=== PATIENT | male | born 1975 | race Caucasian/White ===

== ENCOUNTER → 2016-03-05 | Outpatient (CLI) | payer MEDICARE, MEDICAID ==
[~2016-03-05] MED LIST: ANAPROX DS550 MG PO; ANTIBIOTIC O500 U/GM TP; CLINDAMYCIN HC300 MG PO; CLINDAMYCIN150 MG PO; HUMULIN R100 U/ML SC; HYDROCODONE BIT1 T11 PO; KEFLEX500 MG PO; LANTUS100 U/ML SC; LEVEMIR10 ML SC; NAPROSYN500 MG PO; NOVOLIN R100 U/ML SC; OMEPRAZOLE20 M2 PO; PRAVASTATIN SOD20 MG PO; REGLAN10 M1 PO; REGLAN10 MG PO; SILVADENE1% TP; TRAZODONE100 MG PO
--- NOTE | ~2016-03-05 | HM ---
[place], [place] HOLTER MONITOR REPORT NAME: IVON ROJAS UNIT #: [id number] ROOM: DOCTOR: ALFONSO PAREDES MD BIRTHDATE: [birth year] DOS: 03/10/2016 48-HOUR HOLTER REFERRING PHYSICIAN: Dr. Mcgregor. INDICATION: Palpitations. The patient underwent 48-hour Holter monitor. The patient's baseline rhythm was normal sinus with an average heart rate of 98 beats per minute with a minimum heart rate of 55 beats per minute with a maximum heart rate of 188 beats per minute. SUPRAVENTRICULAR ACTIVITY: The patient experienced a total of 133 isolated PACs. No significant supraventricular tachycardias. VENTRICULAR ACTIVITY: 1. The patient experienced 12 isolated PVCs. No significant sustaining ventricular tachycardias. 2. No significant blocks, pauses, or bradycardia. 3. No significant diary entries were noted. SUMMARY OF FINDINGS: TopofForm Benign 48-hour Holter with very rare PACs and PVCs noted.BottomofForm ALFONSO PAREDES MD CM:HOLTER:HOLTER MONITOR REPORT [id number] ALFONSO PAREDES MD
== END | disposition home or self-care (01) ==
LOC: CARD 02:27
DX: E10.65 Type 1 diabetes mellitus with hyperglycemia (principal); R00.2 Palpitations; E78.5 Hyperlipidemia, unspecified; G25.0 Essential tremor; B18.2 Chronic viral hepatitis C; R51 Headache; R56.9 Unspecified convulsions; Z88.0 Allergy status to penicillin

== ENCOUNTER → 2016-03-20 | Outpatient (CLI) | payer MEDICARE, MEDICAID | END | disposition home or self-care (01) | LOC: CARD 02:51 | DX: R00.2 Palpitations (principal) ==

== ENCOUNTER → 2016-09-09 | Outpatient (CLI) | payer MEDICARE, MEDICAID | END | disposition home or self-care (01) | LOC: RESCLI 02:55 | DX: E10.65 Type 1 diabetes mellitus with hyperglycemia (principal); F17.200 Nicotine dependence, unspecified, uncomplicated; Z88.0 Allergy status to penicillin; Z91.010 Allergy to peanuts; Z88.8 Allergy status to other drugs, medicaments and biological substances ==

== ENCOUNTER → 2016-11-25 | Outpatient (CLI) | payer MEDICARE | END | disposition home or self-care (01) | LOC: RESCLI 01:45 → LAB 01:45 → RESCLI 08:25 | DX: E10.65 Type 1 diabetes mellitus with hyperglycemia (principal) ==

== ENCOUNTER → 2017-02-17 | Outpatient (CLI) | payer MEDICARE, MEDICAID | END | disposition home or self-care (01) | LOC: RESCLI 02:11 | DX: E10.65 Type 1 diabetes mellitus with hyperglycemia (principal); G56.03 Carpal tunnel syndrome, bilateral upper limbs; B18.2 Chronic viral hepatitis C; Z88.0 Allergy status to penicillin; Z72.0 Tobacco use ==

== ENCOUNTER → 2017-06-02 | Outpatient (CLI) | payer MEDICARE, MEDICAID | END | disposition home or self-care (01) | LOC: RESCLI 10:56 | DX: B18.2 Chronic viral hepatitis C (principal); G56.03 Carpal tunnel syndrome, bilateral upper limbs; E10.65 Type 1 diabetes mellitus with hyperglycemia; Z88.0 Allergy status to penicillin ==

== ENCOUNTER 2017-09-29 22:26 | Emergency (ER) | payer MEDICARE, MEDICAID ==
[~2017-09-29] VITALS: Ht 154.9 cm; Wt 52.2 kg
--- NOTE | ~2017-09-29 | EKG ---
[place], [place] ELECTROCARDIOGRAM REPORT NAME: IVON ROJAS UNIT #: [id number] ROOM: DOCTOR: EPIPHANY DRAFT REPORT BIRTHDATE: [birth year] [facility] Test Date: 2017-09-29 Test Time: 22:55:46 Pat Name: IVON ROJAS Department: ER Room: Gender: [employer] Consultant: : 1975 Requested By: FOREST LEWIS Order Number: [id number] Reading MD: Yong Espinoza MD Measurements Intervals [place] Rate: 95 P: 66 OR: 175 QRS: 69 QRSD: 83 T: 54 QT: 358 QTc: 450 Interpretive Statements Sinus rhythm Electronically Signed On 09-30-2017 10:20:57 PDT by Yong Espinoza MD CM:EKGRPT:ELECTROCARDIOGRAM REPORT [id number] FOREST SAMUELS DRAFT REPORT FOREST LEWIS DO
[~2017-09-29 22:26] MED LIST changes: -CLINDAMYCIN150 MG PO; -HYDROCODONE BIT1 T11 PO; -NAPROSYN500 MG PO; -SILVADENE1% TP
[2017-09-29 23:14] LABS: BASO % 0.5 % (0.0-1.0); EOS # 0.1 10*3/uL (0.0-0.4); EOS % 1.6 % (1.0-4.0); HEMATOCRIT 43.5 % (42.0-52.0); HEMOGLOBIN 14.5 g/dl (14.0-18.0); LYMPH # 2.1 10*3/uL (1.3-4.4); LYMPH % 25.2 % (27.0-41.0); MEAN CELL VOLUME 88.1 fl (80.0-94.0); MEAN CORPUSCULAR HGB 29.4 pg (27.0-31.0); MEAN CORPUSCULAR HGB CONC 33.3 g/dl (33.0-37.0); MEAN PLATELET VOLUME 8.5 fl (9.6-12.3); MONO # 0.6 10*3/uL (0.1-1.0); MONO % 7.3 % (3.0-9.0); NEUT # 5.4 10*3/uL (2.3-7.9); PLATELET COUNT AUTOMATED 252 10*3/uL (130-400); RED BLOOD COUNT 4.94 10*6/uL (4.50-5.90); RED CELL DISTRI WIDTH 13.2 % (0-14.5); WHITE BLOOD COUNT 8.3 10*3/uL (4.8-10.8)
[2017-09-29 23:16] LABS: ABG BASE EXCESS 4.6 mmol/L (-2.0-2.0); ABG HCO3 31.5 mmol/l (22-26); ABG O2 SATURATION 65.2 % (95-97); ARTERIAL BLOOD GAS PCO2 59.1 mmHg (35-45); ARTERIAL BLOOD GAS PH 7.347 (7.35-7.45)
[2017-09-29 23:23] LABS: ARTERIAL BLOOD GAS PO2 25.8 mmHg (80-90)
[2017-09-29 23:40] LABS: ALBUMIN 4.5 gm/dl (3.1-4.5); ALKALINE PHOSPHATASE 103 U/L (45-117); BUN 16 mg/dl (7-24); CHLORIDE 101 mmol/L (98-107); CREATININE 0.91 mg/dL (0.70-1.30); POTASSIUM 3.7 mmol/L (3.5-5.1); SGOT/AST 56 IU/L (3-35); SGPT/ALT 68 U/L (12-78); SODIUM 139 mmol/L (136-145); TOTAL PROTEIN 8.7 gm/dL (6.4-8.2)
[2017-09-29 23:41] LABS: VENOUS BLOOD GAS O2 SAT 79.3 % (40-85); VENOUS PH 7.354 (7.32-7.43)
[2017-09-29 23:42] LABS: TROPONIN I < 0.015 ng/ml (<0.045)
== END 2017-09-29 23:48 | disposition left against medical advice (07) ==
LOC: ED 22:26
PROVIDERS: Student in an Organized Health Care Education/Training Program
DX: T58.91XA Toxic effect of carbon monoxide from unspecified source, accidental (unintentional), initial encounter (principal); R41.0 Disorientation, unspecified; R53.83 Other fatigue; R11.10 Vomiting, unspecified; E11.9 Type 2 diabetes mellitus without complications; Z88.0 Allergy status to penicillin; Z88.8 Allergy status to other drugs, medicaments and biological substances; Z91.013 Allergy to seafood; Y92.9 Unspecified place or not applicable

== ENCOUNTER → 2017-11-25 | Outpatient (CLI) | payer MEDICARE, MEDICAID ==
[~2017-11-25] MED LIST changes: +CLINDAMYCIN150 MG PO; +HYDROCODONE BIT1 T11 PO; +NAPROSYN500 MG PO; +SILVADENE1% TP
== END | disposition home or self-care (01) ==
LOC: RESCLI 04:54
DX: E10.65 Type 1 diabetes mellitus with hyperglycemia (principal); B18.2 Chronic viral hepatitis C; L40.9 Psoriasis, unspecified; Z79.899 Other long term (current) drug therapy; Z88.0 Allergy status to penicillin; Z88.8 Allergy status to other drugs, medicaments and biological substances; Z91.018 Allergy to other foods

== ENCOUNTER 2021-04-06 11:21 | Inpatient (IN) | payer MEDICARE ==
[~2021-04-06] VITALS: Ht 177.8 cm; Wt 81.6 kg
[2021-04-06 11:25] VITALS: BP 96/63
[2021-04-06 11:49] LABS: BASO # 0.1 10*3/uL (0.0-0.1); BASO % 0.7 % (0.0-1.0); EOS # 0.1 10*3/uL (0.0-0.4); EOS % 1.1 % (1.0-4.0); HEMATOCRIT 44.9 % (42.0-52.0); LYMPH # 1.9 10*3/uL (1.3-4.4); LYMPH % 20.6 % (27.0-41.0); MEAN CELL VOLUME 87.7 fl (80.0-94.0); MEAN CORPUSCULAR HGB 27.9 pg (27.0-31.0); MEAN CORPUSCULAR HGB CONC 31.8 g/dl (33.0-37.0); MEAN PLATELET VOLUME 9.1 fl (9.6-12.3); MONO # 0.4 10*3/uL (0.1-1.0); MONO % 4.6 % (3.0-9.0); NEUT # 6.7 10*3/uL (2.3-7.9); NEUT % 72.5 % (47.0-73.0); PLATELET COUNT AUTOMATED 272 10*3/uL (130-400); RED BLOOD COUNT 5.12 10*6/uL (4.50-5.90); RED CELL DISTRI WIDTH 12.8 % (0-14.5); WHITE BLOOD COUNT 9.2 10*3/uL (4.8-10.8)
[2021-04-06 12:00] LABS: ALBUMIN 3.5 gm/dl (3.1-4.5); ALKALINE PHOSPHATASE 156 U/L (45-117); BUN 20 mg/dl (7-24); CHLORIDE 93 mmol/L (98-107); CREATININE 1.17 mg/dL (0.70-1.30); POTASSIUM 4.3 mmol/L (3.5-5.1); SGOT/AST 47 IU/L (3-35); SGPT/ALT 43 U/L (12-78); SODIUM 131 mmol/L (136-145); TOTAL PROTEIN 7.4 gm/dL (6.4-8.2)
[2021-04-06] MEDS ORDERED: LEVEMIR100 UNIT/1 SC (12:27)
[2021-04-06 13:35] VITALS: BP 98/64
[2021-04-06 14:34] LABS: BUN 18 mg/dl (7-24); CHLORIDE 101 mmol/L (98-107); CREATININE 1.18 mg/dL (0.70-1.30); POTASSIUM 4.5 mmol/L (3.5-5.1); SODIUM 131 mmol/L (136-145)
[2021-04-06 15:00] VITALS: BP 98/64
[2021-04-06 15:12] LABS: BILIRUBIN Negative (Negative); BLOOD Negative (Negative); CLARITY Clear (Clear); COLOR Yellow (Yellow); GLUCOSE 3+ (Negative); KETONE 4+ (Negative); LEUKO ESTERASE Negative (Negative); NITRITE Negative (Negative); SPECIFIC GRAVITY >= 1.030 (1.001-1.030); UROBILINOGEN 0.2 E.U./dl (0.0-1.0)
[2021-04-06 15:22] LABS: RBC 0-2 rbc/hpf (0-2); WBC 0-2 wbc/hpf (0-5)
[2021-04-06 17:14] LABS: BUN 16 mg/dl (7-24); CHLORIDE 106 mmol/L (98-107); CREATININE 0.79 mg/dL (0.70-1.30); POTASSIUM 4.9 mmol/L (3.5-5.1); SODIUM 135 mmol/L (136-145)
[2021-04-06 17:15] VITALS: BP 102/66
[2021-04-06 17:30] VITALS: BP 121/75
[2021-04-06 20:00] VITALS: BP 116/74
[2021-04-06 20:25] LABS: BUN 14 mg/dl (7-24); CHLORIDE 110 mmol/L (98-107); CREATININE 0.98 mg/dL (0.70-1.30); SODIUM 139 mmol/L (136-145)
[2021-04-06 23:24] LABS: BUN 12 mg/dl (7-24); CHLORIDE 109 mmol/L (98-107); CREATININE 0.86 mg/dL (0.70-1.30); POTASSIUM 3.8 mmol/L (3.5-5.1); SODIUM 138 mmol/L (136-145)
[2021-04-07] VITALS: BP 98/58
[2021-04-07 04:00] VITALS: BP 98/61
[2021-04-07 06:06] LABS: ALBUMIN 2.4 gm/dl (3.1-4.5); BASO # 0.1 10*3/uL (0.0-0.1); BASO % 0.6 % (0.0-1.0); BUN 13 mg/dl (7-24); CHLORIDE 109 mmol/L (98-107); CHOLESTEROL 175 mg/dL (<200); CREATININE 0.77 mg/dL (0.70-1.30); EOS # 0.2 10*3/uL (0.0-0.4); EOS % 2.3 % (1.0-4.0); HEMATOCRIT 38.3 % (42.0-52.0); LYMPH # 3.3 10*3/uL (1.3-4.4); LYMPH % 42.2 % (27.0-41.0); MEAN CELL VOLUME 87.8 fl (80.0-94.0); MEAN CORPUSCULAR HGB CONC 31.9 g/dl (33.0-37.0); MEAN PLATELET VOLUME 9.1 fl (9.6-12.3); MONO # 0.4 10*3/uL (0.1-1.0); MONO % 5.2 % (3.0-9.0); NEUT # 3.8 10*3/uL (2.3-7.9); NEUT % 49.6 % (47.0-73.0); PLATELET COUNT AUTOMATED 250 10*3/uL (130-400); POTASSIUM 3.4 mmol/L (3.5-5.1); RED BLOOD COUNT 4.36 10*6/uL (4.50-5.90); SGOT/AST 29 IU/L (3-35); SGPT/ALT 32 U/L (12-78); SODIUM 140 mmol/L (136-145); TOTAL PROTEIN 5.8 gm/dL (6.4-8.2); TRIGLYCERIDES 193 mg/dl (<150); WHITE BLOOD COUNT 7.7 10*3/uL (4.8-10.8)
[2021-04-07 06:11] LABS: ALKALINE PHOSPHATASE 120 U/L (45-117); FREE T4 0.93 ng/dl (0.76-1.46); LDL CHOLESTEROL 103 mg/dL (9-159); THYROID STIM HORMONE (HS) 0.967 uIU/ml (0.358-4.75)
[2021-04-07 08:00] VITALS: BP 106/66
[2021-04-07] MEDS ORDERED: LEVEMIR100 UNIT/1 SC ×2 (10:17→10:20)
[2021-04-07] MEDS ORDERED: NOVOLOG10 ML SC (10:17)
== END 2021-04-07 10:58 | disposition home or self-care (01) | DRG 639 ==
LOC: ED 11:21 → EDHOLD 12:12 → ICCU 17:07
PROVIDERS: Emergency Medicine; Student in an Organized Health Care Education/Training Program; ADMIT Family Medicine; ATTEND Family Medicine
DX: E10.10 Type 1 diabetes mellitus with ketoacidosis without coma (principal); F17.210 Nicotine dependence, cigarettes, uncomplicated; K31.84 Gastroparesis; R74.01 Elevation of levels of liver transaminase levels; E87.8 Other disorders of electrolyte and fluid balance, not elsewhere classified; E10.43 Type 1 diabetes mellitus with diabetic autonomic (poly)neuropathy; Z88.0 Allergy status to penicillin; Z91.013 Allergy to seafood; Z88.8 Allergy status to other drugs, medicaments and biological substances; Z82.49 Family history of ischemic heart disease and other diseases of the circulatory system; Z79.4 Long term (current) use of insulin; Z79.899 Other long term (current) drug therapy

== ENCOUNTER 2021-05-14 11:06 | Inpatient (IN) | payer MEDICARE ==
[~2021-05-14] VITALS: Ht 177.8 cm; Wt 62.6 kg
[~2021-05-14 11:06] MED LIST changes: +LEVEMIR100 UNIT/1 SC; +NOVOLOG10 ML SC
[2021-05-14 11:09] VITALS: BP 110/86
[2021-05-14 13:22] LABS: BASO # 0.1 10*3/uL (0.0-0.1); BASO % 0.5 % (0.0-1.0); EOS % 0.1 % (1.0-4.0); HEMATOCRIT 43.4 % (42.0-52.0); LYMPH # 1.5 10*3/uL (1.3-4.4); LYMPH % 14.4 % (27.0-41.0); MEAN CELL VOLUME 88.6 fl (80.0-94.0); MEAN CORPUSCULAR HGB 28.2 pg (27.0-31.0); MEAN CORPUSCULAR HGB CONC 31.8 g/dl (33.0-37.0); MEAN PLATELET VOLUME 9.3 fl (9.6-12.3); MONO # 0.3 10*3/uL (0.1-1.0); MONO % 3.2 % (3.0-9.0); NEUT # 8.5 10*3/uL (2.3-7.9); NEUT % 81.5 % (47.0-73.0); PLATELET COUNT AUTOMATED 290 10*3/uL (130-400); RED CELL DISTRI WIDTH 13.5 % (0-14.5); WHITE BLOOD COUNT 10.5 10*3/uL (4.8-10.8)
[2021-05-14 13:33] LABS: ACT PARTIAL THROMBO TIME 22.1 SECONDS (20.0-32.1); INTERNATIONAL NORM RATIO 0.9 (2.0-3.5)
[2021-05-14 13:41] LABS: ALKALINE PHOSPHATASE 170 U/L (45-117); BUN 20 mg/dl (7-24); CHLORIDE 96 mmol/L (98-107); CREATININE 1.13 mg/dL (0.70-1.30); LIPASE 39 U/L (73-393); POTASSIUM 5.1 mmol/L (3.5-5.1); SGOT/AST 17 IU/L (3-35); SGPT/ALT 25 U/L (12-78); SODIUM 131 mmol/L (136-145); TOTAL PROTEIN 7.6 gm/dL (6.4-8.2)
[2021-05-14 14:10] VITALS: BP 98/54
[2021-05-14 16:24] LABS: BILIRUBIN Negative (Negative); BLOOD Negative (Negative); CLARITY Clear (Clear); COLOR Yellow (Yellow); GLUCOSE 3+ (Negative); KETONE 4+ (Negative); LEUKO ESTERASE Negative (Negative); NITRITE Negative (Negative); SPECIFIC GRAVITY >= 1.030 (1.001-1.030); UROBILINOGEN 0.2 E.U./dl (0.0-1.0)
[2021-05-14 16:35] LABS: BACTERIA TRACE; EPITHELIAL CELLS 0-2; WBC 0-2 wbc/hpf (0-5)
[2021-05-14 17:11] VITALS: BP 98/50
[2021-05-14 18:42] LABS: BUN 24 mg/dl (7-24); CHLORIDE 107 mmol/L (98-107); CREATININE 1.44 mg/dL (0.70-1.30); SODIUM 140 mmol/L (136-145)
[2021-05-14 18:44] LABS: POTASSIUM 3.7 mmol/L (3.5-5.1)
[2021-05-14 20:00] VITALS: BP 94/49
[2021-05-14 21:55] LABS: BUN 20 mg/dl (7-24); CHLORIDE 116 mmol/L (98-107); CREATININE 1.15 mg/dL (0.70-1.30); POTASSIUM 3.8 mmol/L (3.5-5.1); SODIUM 144 mmol/L (136-145)
[2021-05-15] VITALS: BP 91/49
[2021-05-15 02:13] LABS: BUN 19 mg/dl (7-24); CHLORIDE 117 mmol/L (98-107); CREATININE 0.96 mg/dL (0.70-1.30); POTASSIUM 3.4 mmol/L (3.5-5.1); SODIUM 147 mmol/L (136-145)
[2021-05-15 04:00] VITALS: BP 103/61
[2021-05-15 06:03] LABS: BASO % 0.3 % (0.0-1.0); EOS % 0.2 % (1.0-4.0); HEMATOCRIT 32.3 % (42.0-52.0); LYMPH # 2.7 10*3/uL (1.3-4.4); LYMPH % 23.8 % (27.0-41.0); MEAN CELL VOLUME 87.5 fl (80.0-94.0); MEAN CORPUSCULAR HGB 27.9 pg (27.0-31.0); MEAN CORPUSCULAR HGB CONC 31.9 g/dl (33.0-37.0); MONO # 0.8 10*3/uL (0.1-1.0); NEUT # 7.7 10*3/uL (2.3-7.9); NEUT % 68.3 % (47.0-73.0); PLATELET COUNT AUTOMATED 276 10*3/uL (130-400); RED BLOOD COUNT 3.69 10*6/uL (4.50-5.90); RED CELL DISTRI WIDTH 13.9 % (0-14.5); WHITE BLOOD COUNT 11.2 10*3/uL (4.8-10.8)
[2021-05-15 06:04] LABS: BUN 18 mg/dl (7-24); CHLORIDE 115 mmol/L (98-107); CREATININE 0.94 mg/dL (0.70-1.30); POTASSIUM 3.5 mmol/L (3.5-5.1); SODIUM 143 mmol/L (136-145)
[2021-05-15 08:00] VITALS: BP 94/68
[2021-05-15 12:00] VITALS: BP 96/69
[2021-05-15] MEDS ORDERED: LEVEMIR100 UNIT/1 SC (13:16)
[2021-05-15] MEDS ORDERED: NOVOLOG10 ML SC (13:16)
[2021-05-15] MEDS ORDERED: INSULIN SYRING MC (14:24)
== END 2021-05-15 14:28 | disposition home or self-care (01) | DRG 638 ==
LOC: ED 11:06 → EDHOLD 14:51 → ICCU 16:29
PROVIDERS: Emergency Medicine; Internal Medicine; ADMIT Student in an Organized Health Care Education/Training Program; ATTEND Student in an Organized Health Care Education/Training Program
PROC: 02H633Z Insertion of Infusion Device into Right Atrium, Percutaneous Approach (ICD-10-PCS; principal; 2021-05-14)
DX: E10.10 Type 1 diabetes mellitus with ketoacidosis without coma (principal); E87.1 Hypo-osmolality and hyponatremia; E44.0 Moderate protein-calorie malnutrition; Z68.1 Body mass index [BMI] 19.9 or less, adult; E83.41 Hypermagnesemia; F17.210 Nicotine dependence, cigarettes, uncomplicated; K31.84 Gastroparesis; D64.9 Anemia, unspecified; E83.39 Other disorders of phosphorus metabolism; Z71.6 Tobacco abuse counseling; Z82.49 Family history of ischemic heart disease and other diseases of the circulatory system; Z79.4 Long term (current) use of insulin; Z88.0 Allergy status to penicillin; Z91.013 Allergy to seafood; Z88.8 Allergy status to other drugs, medicaments and biological substances

== ENCOUNTER → 2021-11-27 | Outpatient (CLI) | payer MEDICARE ==
[~2021-11-27] MED LIST changes: +INSULIN SYRING MC; +LIPITOR20 MG PO
[2021-11-27 12:39] LABS: BASO % 0.5 % (0.0-1.0); EOS # 0.1 10*3/uL (0.0-0.4); EOS % 1.2 % (1.0-4.0); HEMATOCRIT 44.2 % (42.0-52.0); LYMPH # 1.3 10*3/uL (1.3-4.4); LYMPH % 17.1 % (27.0-41.0); MEAN CELL VOLUME 91.5 fl (80.0-94.0); MEAN CORPUSCULAR HGB 29.6 pg (27.0-31.0); MEAN CORPUSCULAR HGB CONC 32.4 g/dl (33.0-37.0); MEAN PLATELET VOLUME 8.2 fl (9.6-12.3); MONO # 0.4 10*3/uL (0.1-1.0); MONO % 4.9 % (3.0-9.0); NEUT # 5.7 10*3/uL (2.3-7.9); NEUT % 76.2 % (47.0-73.0); PLATELET COUNT AUTOMATED 358 10*3/uL (130-400); RED BLOOD COUNT 4.83 10*6/uL (4.50-5.90); RED CELL DISTRI WIDTH 16.4 % (0-14.5); WHITE BLOOD COUNT 7.5 10*3/uL (4.8-10.8)
[2021-11-27 12:56] LABS: BUN 16 mg/dl (7-24); CHLORIDE 100 mmol/L (98-107); CHOLESTEROL 286 mg/dL (<200); CREATININE 0.89 mg/dL (0.70-1.30); LDL CHOLESTEROL 192 mg/dL (9-159); POTASSIUM 4.3 mmol/L (3.5-5.1); SGOT/AST 50 IU/L (3-35); SGPT/ALT 44 U/L (12-78); SODIUM 134 mmol/L (136-145); TRIGLYCERIDES 237 mg/dl (<150)
[2021-11-27 13:00] LABS: ALKALINE PHOSPHATASE 305 U/L (45-117)
== END | disposition home or self-care (01) ==
LOC: LAB 11:47
PROVIDERS: ATTEND Internal Medicine
DX: M43.16 Spondylolisthesis, lumbar region (principal); E11.9 Type 2 diabetes mellitus without complications; M79.604 Pain in right leg

== ENCOUNTER 2023-04-03 11:48 | Emergency (ER) | payer MEDICARE, MEDICAID ==
[~2023-04-03] VITALS: Ht 180.3 cm; Wt 64.9 kg
[2023-04-03] MEDS ORDERED: CEPHALEXIN500 M1 PO (13:19)
== END 2023-04-03 13:30 | disposition home or self-care (01) ==
LOC: ED 11:48
DX: S61.412A Laceration without foreign body of left hand, initial encounter (principal); F17.200 Nicotine dependence, unspecified, uncomplicated; Z88.0 Allergy status to penicillin; Z88.8 Allergy status to other drugs, medicaments and biological substances; Z91.013 Allergy to seafood; Z79.4 Long term (current) use of insulin; Z79.899 Other long term (current) drug therapy; Z98.890 Other specified postprocedural states; W26.0XXA Contact with knife, initial encounter; Y93.89 Activity, other specified; Y92.89 Other specified places as the place of occurrence of the external cause; Y99.8 Other external cause status

== ENCOUNTER → 2023-06-10 | Outpatient (CLI) | payer MEDICARE, MEDICAID ==
[~2023-06-10] MED LIST changes: +CEPHALEXIN500 M1 PO
[2023-06-10 14:23] LABS: BASO # 0.1 10*3/uL (0.0-0.1); BASO % 0.5 % (0.0-1.0); EOS # 0.4 10*3/uL (0.0-0.4); HEMATOCRIT 42.2 % (42.0-52.0); LYMPH # 2.2 10*3/uL (1.3-4.4); LYMPH % 23.9 % (27.0-41.0); MEAN CELL VOLUME 87.6 fl (80.0-94.0); MEAN CORPUSCULAR HGB 27.8 pg (27.0-31.0); MEAN CORPUSCULAR HGB CONC 31.8 g/dl (33.0-37.0); MEAN PLATELET VOLUME 8.6 fl (9.6-12.3); MONO # 0.5 10*3/uL (0.1-1.0); MONO % 5.9 % (3.0-9.0); NEUT % 65.5 % (47.0-73.0); PLATELET COUNT AUTOMATED 319 10*3/uL (130-400); RED BLOOD COUNT 4.82 10*6/uL (4.50-5.90); RED CELL DISTRI WIDTH 13.3 % (0-14.5); RETICULOCYTE % 1.47 % (0.50-2.50); WHITE BLOOD COUNT 9.1 10*3/uL (4.8-10.8)
[2023-06-10 14:47] LABS: CLARITY Clear (Clear); COLOR Yellow (Yellow); GLUCOSE 3+ (Negative)
[2023-06-10 14:48] LABS: BILIRUBIN Negative (Negative); BLOOD Negative (Negative); KETONE Negative (Negative); LEUKO ESTERASE Negative (Negative); NITRITE Negative (Negative); SPECIFIC GRAVITY 1.015 (1.001-1.030); UROBILINOGEN 0.2 E.U./dl (0.0-1.0)
[2023-06-10 14:54] LABS: ALKALINE PHOSPHATASE 119 U/L (46-116); BUN 12 mg/dl (9-23); CHLORIDE 103 mmol/L (98-107); CHOLESTEROL 207 mg/dL (<200); GAMMA GLUTAMYL TRANSPEPTIDASE 79 U/L (0-73); LDL CHOLESTEROL 139 mg/dL (9-159); POTASSIUM 4.3 mmol/L (3.4-5.1); SGPT/ALT 59 U/L (5-49); T3 UPTAKE 21.8 % (22.4-36.7); THYROXINE (T4) TOTAL 8.7 ug/dl (4.5-10.9); TOTAL PROTEIN 7.2 gm/dL (6.0-8.0); TRIGLYCERIDES 89 mg/dl (<150); URIC ACID 4.2 mg/dL (3.7-9.2)
[2023-06-10 15:03] LABS: VITAMIN D, 25-HYDROXY 29.2 ng/mL (30-100)
[2023-06-10 15:05] LABS: BACTERIA TRACE; HYALINE CAST 0-2
[2023-06-10 15:06] LABS: RBC 0-2 rbc/hpf (0-2)
[2023-06-11 13:07] LABS: ANTI-DSDNA ANTIBODIES <1 IU/mL (0-9)
== END | disposition home or self-care (01) ==
LOC: LAB 13:46
PROVIDERS: ATTEND Family Medicine
DX: Z12.5 Encounter for screening for malignant neoplasm of prostate (principal); E78.5 Hyperlipidemia, unspecified; E55.9 Vitamin D deficiency, unspecified; R79.89 Other specified abnormal findings of blood chemistry; R53.83 Other fatigue; R74.8 Abnormal levels of other serum enzymes; R05.3 Chronic cough

== ENCOUNTER → 2024-07-29 | Outpatient (CLI) | payer OTHER, MEDICAID | END | disposition home or self-care (01) | LOC: RESCLI 13:58 | PROVIDERS: ATTEND Family Medicine | DX: E10.9 Type 1 diabetes mellitus without complications (principal) ==

== ENCOUNTER → 2024-08-09 | Outpatient (CLI) | payer OTHER ==
[2024-08-09 13:35] LABS: BASO # 0.1 10*3/uL (0.0-0.1); BASO % 0.7 % (0.0-1.0); EOS # 0.2 10*3/uL (0.0-0.4); EOS % 2.3 % (1.0-4.0); HEMATOCRIT 46.4 % (42.0-52.0); MEAN CELL VOLUME 86.2 fl (80.0-94.0); MEAN CORPUSCULAR HGB 27.9 pg (27.0-31.0); MEAN CORPUSCULAR HGB CONC 32.3 g/dl (33.0-37.0); MEAN PLATELET VOLUME 8.3 fl (9.6-12.3); MONO # 0.7 10*3/uL (0.1-1.0); MONO % 6.5 % (3.0-9.0); NEUT # 6.5 10*3/uL (2.3-7.9); NEUT % 64.3 % (47.0-73.0); PLATELET COUNT AUTOMATED 309 10*3/uL (130-400); RED BLOOD COUNT 5.38 10*6/uL (4.50-5.90); RED CELL DISTRI WIDTH 14.3 % (0-14.5); WHITE BLOOD COUNT 10.1 10*3/uL (4.8-10.8)
[2024-08-09 13:57] LABS: ALKALINE PHOSPHATASE 104 U/L (46-116); BUN 8 mg/dl (9-23); CHLORIDE 98 mmol/L (98-107); CHOLESTEROL 253 mg/dL (<200); LDL CHOLESTEROL 170 mg/dL (9-159); POTASSIUM 4.5 mmol/L (3.4-5.1); SGPT/ALT 28 U/L (5-49); TRIGLYCERIDES 122 mg/dl (<150)
== END | disposition home or self-care (01) ==
LOC: LAB 13:04
PROVIDERS: Student in an Organized Health Care Education/Training Program; ATTEND Family Medicine
DX: E10.9 Type 1 diabetes mellitus without complications (principal)

== ENCOUNTER 2024-09-13 22:59 | Emergency (ER) | payer OTHER ==
[~2024-09-13] VITALS: Ht 180.3 cm; Wt 74.8 kg
[2024-09-14 00:34] LABS: BASO # 0.0 10*3/uL (0.0-0.1); BASO % 0.4 % (0.0-1.0); EOS # 0.2 10*3/uL (0.0-0.4); EOS % 1.7 % (1.0-4.0); MEAN CELL VOLUME 87.4 fl (80.0-94.0); MEAN CORPUSCULAR HGB 27.6 pg (27.0-31.0); MEAN PLATELET VOLUME 8.2 fl (9.6-12.3); MONO # 0.6 10*3/uL (0.1-1.0); MONO % 6.3 % (3.0-9.0); NEUT # 6.0 10*3/uL (2.3-7.9); NEUT % 67.0 % (47.0-73.0); NUCLEATED RED BLOOD CELL 0.0 % (0.0-0.0); NUCLEATED RED BLOOD CELL 0.0 10*3/uL (0.0-0.0); PLATELET COUNT AUTOMATED 323 10*3/uL (130-400); RED CELL DISTRI WIDTH 13.9 % (0-14.5)
[2024-09-14 00:53] LABS: BUN 7 mg/dl (9-23); ETHYL ALCOHOL 227.6 mg/dl (<3)
[2024-09-14] MEDS ORDERED: POTASSIUM CHLORIDE 20 MEQ TAB PO ONE (01:45)
== END 2024-09-14 02:13 ==
LOC: ED 22:59
PROVIDERS: Internal Medicine
DX: S93.402A Sprain of unspecified ligament of left ankle, initial encounter (principal); F10.129 Alcohol abuse with intoxication, unspecified; E11.9 Type 2 diabetes mellitus without complications; E87.6 Hypokalemia; Z88.0 Allergy status to penicillin; Z88.8 Allergy status to other drugs, medicaments and biological substances; Z91.013 Allergy to seafood; Z79.899 Other long term (current) drug therapy; Z79.4 Long term (current) use of insulin; Z98.890 Other specified postprocedural states; Z87.891 Personal history of nicotine dependence; Y90.7 Blood alcohol level of 200-239 mg/100 ml; X58.XXXA Exposure to other specified factors, initial encounter; Y93.89 Activity, other specified; Y92.89 Other specified places as the place of occurrence of the external cause; Y99.8 Other external cause status

== ENCOUNTER 2024-12-05 12:03 | Emergency (ER) | payer OTHER ==
[~2024-12-05] VITALS: Ht 180.3 cm; Wt 72.6 kg
[2024-12-05] MEDS ORDERED: HUMULIN R100 UNIT/1 IV (12:11)
[2024-12-05] MEDS ORDERED: LANTUS SOL100 UNIT/1 SC (12:11)
[2024-12-05] MEDS ORDERED: SODIUM CHLORIDE 0.9% 1,000 ML IV SCH (12:20)
[2024-12-05] MEDS ORDERED: Ondansetron Hydrochloride 4 MG/2 ML VIAL IV ONE (12:25)
[2024-12-05] MEDS ORDERED: OMNIPOD 5 G6 P1 EAC1 SQ (12:49)
[2024-12-05 13:07] LABS: BASO # 0.1 10*3/uL (0.0-0.1); BASO % 1.0 % (0.0-1.0); EOS # 0.1 10*3/uL (0.0-0.4); EOS % 2.2 % (1.0-4.0); MEAN CELL VOLUME 87.3 fl (80.0-94.0); MEAN CORPUSCULAR HGB 28.3 pg (27.0-31.0); MEAN PLATELET VOLUME 8.3 fl (9.6-12.3); MONO # 0.4 10*3/uL (0.1-1.0); MONO % 8.7 % (3.0-9.0); NEUT # 2.8 10*3/uL (2.3-7.9); NEUT % 55.6 % (47.0-73.0); NUCLEATED RED BLOOD CELL 0.0 % (0.0-0.0); NUCLEATED RED BLOOD CELL 0.0 10*3/uL (0.0-0.0); PLATELET COUNT AUTOMATED 342 10*3/uL (130-400); RED CELL DISTRI WIDTH 12.9 % (0-14.5)
[2024-12-05 13:26] LABS: BUN 13 mg/dl (9-23); SGPT/ALT 19 U/L (5-49)
[2024-12-05] MEDS ORDERED: INSULIN REGULAR, HUMAN 1 UNIT/0.01 ML IV ONE (14:00)
== END 2024-12-05 14:13 | disposition left against medical advice (07) ==
LOC: ED 12:03
PROVIDERS: Nurse Practitioner Family
DX: R11.2 Nausea with vomiting, unspecified (principal); R19.7 Diarrhea, unspecified; R53.1 Weakness; R10.9 Unspecified abdominal pain; E10.9 Type 1 diabetes mellitus without complications; J45.909 Unspecified asthma, uncomplicated; F17.210 Nicotine dependence, cigarettes, uncomplicated; F12.90 Cannabis use, unspecified, uncomplicated; Z98.890 Other specified postprocedural states; Z88.0 Allergy status to penicillin; Z88.8 Allergy status to other drugs, medicaments and biological substances; Z91.013 Allergy to seafood; Z53.29 Procedure and treatment not carried out because of patient's decision for other reasons; Z86.19 Personal history of other infectious and parasitic diseases; Z20.822 Contact with and (suspected) exposure to COVID-19